=== PATIENT | male | born 2000 | race Caucasian/White ===

== ENCOUNTER 2021-01-09 17:54 | Emergency (ER) | payer SELFPAY ==
[~2021-01-09] VITALS: Ht 185.4 cm; Wt 73.9 kg
== END 2021-01-09 21:19 | disposition left against medical advice (07) ==
LOC: ER 17:54
DX: T20.00XA Burn of unspecified degree of head, face, and neck, unspecified site, initial encounter (principal); Z53.21 Procedure and treatment not carried out due to patient leaving prior to being seen by health care provider; X12.XXXA Contact with other hot fluids, initial encounter; Y92.89 Other specified places as the place of occurrence of the external cause; Y99.0 Civilian activity done for income or pay
CPT/HCPCS: 99282; A9270